=== PATIENT | female | born 2000 | race Caucasian/White ===

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

== ENCOUNTER 2018-04-06 17:47 | Emergency (ER) | payer OTHER ==
[~2018-04-06] VITALS: Ht 172.7 cm; Wt 59.5 kg
[~2018-04-06 17:47] MED LIST: BENA25CA4 PO; BUTATAB6 PO
[2018-04-06] MEDS ORDERED: NORT25CA2 PO (17:55)
[2018-04-06] MEDS ORDERED: ONDANSETRON 4 MG ORAL DISINTEGRATING TAB (Q0162 PER 1MG) PO ONE (18:30)
[2018-04-06] MEDS ORDERED: ONDA4TAB6 PO (18:52)
[2018-04-06 18:55] VITALS: BP 104/55
== END 2018-04-06 18:57 | disposition home or self-care (01) ==
LOC: M ED 17:47
DX: R11.10 Vomiting, unspecified (principal); Z88.1 Allergy status to other antibiotic agents; Z88.8 Allergy status to other drugs, medicaments and biological substances
CPT/HCPCS: 99284; Q0162